=== PATIENT | female | born 1995 | race Caucasian/White ===

== ENCOUNTER 2017-12-13 12:16 | Emergency (ER) | payer MEDICAID ==
[~2017-12-13] VITALS: Ht 149.9 cm; Wt 54.1 kg
[2017-12-13] MEDS ORDERED: HYDROCODONE/ACETAMINOPHEN 5-325 MG TABLET PO ONE (13:15)
[2017-12-13] MEDS ORDERED: KETOROLAC TROMETHAMINE 60 MG/2 ML VIAL IM ONE (16:00)
[2017-12-13 18:21] VITALS: BP 140/66
== END 2017-12-13 18:49 | disposition home or self-care (01) ==
LOC: EMS 12:20
DX: S79.921A Unspecified injury of right thigh, initial encounter (principal); M79.604 Pain in right leg; W10.9XXA Fall (on) (from) unspecified stairs and steps, initial encounter; Y93.02 Activity, running; Y92.89 Other specified places as the place of occurrence of the external cause; Y99.8 Other external cause status
CPT/HCPCS: 73502; 73552; 73700; 81025; 96372; 99284; J1885